=== PATIENT | female | born 1960 | race American Indian/Alaskan Native ===

== ENCOUNTER 2017-08-08 10:27 | Emergency (ER) | payer OTHER ==
[2017-08-08 10:27] VITALS: BMI 26.6
--- NOTE | 2017-08-08 11:22 | C.PDOC ---
History Of Present Illness 56 yo female, presents with sore throat, cough, body aches, she has had for 1 week. pt states no vomiting abdominal pain, ear pain, sick contacts. Time Seen by Provider: 08/08/17 10:55 Chief Complaint (Nursing): Cough, Cold, Congestion Past Medical History Reviewed: Historical Data, Nursing Documentation, Vital Signs Vital Signs: Last Vital Signs Temp 97.7 F 08/08/17 13:16 Pulse 61 08/08/17 13:16 Resp 20 08/08/17 13:16 BP 149/80 08/08/17 13:16 Pulse Ox 100 08/08/17 13:16 - Medical History PMH: Anemia, Bronchitis, Diabetes, HTN, Hyperthyroidism, Osteoporosis - [facility] INJECT/INFUSE NEC (03/23/15) Family History: States: Unknown Family Hx - Social History Hx Tobacco Use: No Hx Alcohol Use: No Hx Substance Use: No - Immunization History Hx Tetanus Toxoid Vaccination: No Hx Influenza Vaccination: No Hx Pneumococcal Vaccination: No Review Of Systems Except As Marked, All Systems Reviewed And Found Negative. Constitutional: Positive for: Chills ENT: Positive for: Throat Pain Respiratory: Positive for: Cough Physical Exam - Physical Exam Appears: Well, No Acute Distress Skin: Normal Color, Warm, Dry Eye(s): bilateral: Normal Inspection, PERRL, EOMI Nose: Normal Throat: Erythema, No Exudate Neck: Normal Cardiovascular: Rhythm Regular Respiratory: Normal Breath Sounds Gastrointestinal/Abdominal: Normal Exam Back: Normal Inspection Extremity: Normal ROM ED Course And Treatment O2 Sat by Pulse Oximetry: 99 Medical Decision Making Medical Decision Making: r/o pna, strep, influenza, viral sydrome. 615: pt reassessed: speaking full sentences. imaging labs unremarkable. advise outpt f/u and return precautions Disposition - Disposition Referrals: [facility] [Outside] [facility] [Outside] [facility] [Outside] Disposition: HOME/ ROUTINE Disposition Time: 02:00 Condition: GOOD Additional Instructions: please follow up with your doctor. return to er with worsening symptoms or concerns. Prescriptions: Ibuprofen [Motrin Tab] 400 mg PO Q6 PRN #20 tab PRN Reason: Pain, Mild (1-3) Instructions: Viral Syndrome (ED) Forms: [employer] (Turkish), Work Excuse - Clinical Impression Clinical Impression: Viral disease
--- NOTE | 2017-08-08 12:05 | RAD ---
HISTORY: cough COMPARISON: No prior. TECHNIQUE: Chest PA and lateral FINDINGS: LUNGS: Mild venous congestion. Prominent bibasilar breast and nipple shadows. Few punctate nodular densities at the medial left lung base likely represent vessels on end. PLEURA: No significant pleural effusion identified. No pneumothorax apparent. CARDIOVASCULAR: Normal. OSSEOUS STRUCTURES: Degenerative changes in the spine and bilateral shoulders with productive change at the inferior left bony glenoid. VISUALIZED UPPER ABDOMEN: Normal. OTHER FINDINGS: None. IMPRESSION: Mild venous congestion. Prominent bibasilar breast and nipple shadows. Few punctate nodular densities at the medial left lung base likely represent vessels on end.
[2017-08-08 13:16] VITALS: BP 149/80; PULSE 61; RESP 20; TEMP 97.7
[2017-08-08 18:16] VITALS: O2SAT 99
== END 2017-08-08 13:23 | disposition home or self-care (01) ==
LOC: C.ER 10:27
DX: B34.9 Viral infection, unspecified (principal)